=== PATIENT | male | born 1965 | race Caucasian/White ===

== ENCOUNTER 2023-12-21 19:01 | Emergency (ER) | payer MEDICAID ==
[~2023-12-21] VITALS: Ht 177.8 cm; Wt 104.3 kg
[~2023-12-21 19:01] MED LIST: ACET-2619 PO; ASCO500T95 PO; ASPI-1093 PO; ATI.5 PO; CALC-232 PO; CARB200T1 PO; DEXT1CAP3 PO; ELA50 PO; ESOM40EC PO; FLOR250 PO; GABA300C PO; HYDR-5071 PO; MULT-1831 PO; NIAC500T30 PO; ONDA4TAB PO; QUET400T PO; SIMV-370 PO; TRAZ-343 PO; [UNRECOGNIZED DRUG - CODE] PO
[2023-12-21 19:05] VITALS: BP 123/77; PULSE 92; RESP 18; TEMP 97.4; O2SAT 98
[2023-12-21] MEDS: NACL 0.9% 1,000 ML IV ONE (19:57)
[2023-12-21 19:58] LABS: BASOPHILS % (AUTO) 0.5 % (0.0-2.0); EOSINOPHILS # (AUTO) 0.3 K/uL (0-0.4); EOSINOPHILS % (AUTO) 3.5 % (0.0-4.0); HEMOGLOBIN 13.8 g/dL (12.0-18.0); LYMPHOCYTES # (AUTO) 2.2 K/uL (2.0-11.5); LYMPHOCYTES % (AUTO) 23.8 % (20.5-51.1); MEAN CORPUSCULAR HEMOGLOBIN 30 pg (27-31); MEAN CORPUSCULAR HGB CONC 33 g/dL (33-37); MEAN CORPUSCULAR VOLUME 90.3 fL (80-94); MONOCYTES # (AUTO) 1.1 K/uL (0.8-1.0); NEUTROPHILS # (AUTO) 5.5 K/uL (1.8-7.7); NEUTROPHILS % (AUTO) 60.2 % (42.2-75.2); PLATELET COUNT (AUTO) 261 K/uL (140-450); RED BLOOD CELL COUNT(AUTO) 4.65 MIL/uL (4.20-6.10); RED CELL DISTRIBUTION WIDTH 14.7 % (11.6-13.7); WHITE BLOOD COUNT (AUTO) 9.2 K/uL (4.8-10.8)
[2023-12-21 20:12] LABS: ANION GAP 8.9 (8-16); CALCIUM 8.1 mg/dL (8.5-10.1); CARBON DIOXIDE 34.5 mmol/L (21-32); CREATININE 0.8 mg/dL (0.6-1.3); POTASSIUM 3.4 mmol/L (3.5-5.1)
[2023-12-21 20:16] LABS: INR 0.99 (0.8-1.2); PARTIAL THROMBOPLASTIN TIME 25.8 secs (22-35.6); PROTHROMBIN TIME 10.4 secs (10.8-13.4)
[2023-12-21] MEDS ORDERED: MORPHINE SULFATE 4 MG/ML SYR ONE (21:20)
[2023-12-21 21:53] LABS: FLU A ANTIGEN negative (NEGATIVE); FLU B ANTIGEN NEGATIVE (NEGATIVE)
[2023-12-21] MEDS: MORPHINE SULFATE 4 MG/ML SYR IVP ONE (21:53)
[2023-12-21 22:17] LABS: BLOOD GAS BASE EXCESS 5.5 mmol/L (-2.0-2.0); BLOOD GAS HCO3 31.6 mmol/L (22-26); BLOOD GAS O2 SAT% 71.7 % (92.0-98.5); BLOOD GAS PCO2 51.9 mmHg (35-45); BLOOD GAS PH 7.402 (7.35-7.45)
[2023-12-21 23:49] VITALS: BP 140/80; PULSE 90; RESP 16; TEMP 97.4; O2SAT 92
== END 2023-12-21 23:49 ==
LOC: MED 19:01
DX: R06.02 Shortness of breath (principal); R07.89 Other chest pain; R10.13 Epigastric pain; K21.9 Gastro-esophageal reflux disease without esophagitis; I10 Essential (primary) hypertension; F41.9 Anxiety disorder, unspecified; F20.9 Schizophrenia, unspecified; Z20.822 Contact with and (suspected) exposure to COVID-19; Z86.69 Personal history of other diseases of the nervous system and sense organs; Z79.1 Long term (current) use of non-steroidal anti-inflammatories (NSAID); Z79.899 Other long term (current) drug therapy
CPT/HCPCS: 36415; 36600; 71045; 74176; 80048; 82803; 83605; 83880; 84484; 85025; 85610; 85730; 87426; 87804; 93005; 96361; 96374; 99285; J2270; J7030